=== PATIENT | female | born 1995 | race Caucasian/White ===

== ENCOUNTER → 2021-06-13 09:50 | Outpatient (CLI) | payer OTHER, SELFPAY ==
--- NOTE | ~2021-06-13 | US_ITS ---
EXAMINATION: US OB /maternal detail EXAM DATE: 06/13/2021 10:42 INDICATION: Anatomy scan. 2nd trimester. TECHNIQUE: Pelvic obstetrical transabdominal sonogram was performed by a technologist. There are mu ltiple grayscale and Doppler images available for interpretation. There are no earlier studies of is gestation for comparison. FINDINGS: There is a single fetus identified in variable breech presentation with a heart rate of 150 beats per minute. The placenta is located in the anterior position. There is no sonographic evidenc e of retroplacental hemorrhage identified. There is subjectively expected amount of amniotic fluid. Placental margin to internal cervical os distance is 4.5 cm. BIOMETRIC DATA: Biparietal diameter (BPD): 5.1 cm ----------------> 21 weeks 4 days. Head circumference (HC): 19.1 cm ----------------> 21 weeks 2 days. Abdominal circumference (AC): 16.7 cm ----------> 21 weeks 5 days. Femur length (FL): 3.3 cm --------------------------> 20 weeks 3 days. These measurements are concordant. HC/AC ratio is 1.14 (The 5th -- 95th percentile range is 1.06-1.24. Estimated weight is 405 g +/- 61 g. This is the 71st percentile when the currently reported cl inical gestation age 20 weeks 5 days, clinical estimated date of delivery ([facility]) 10/26 is used. Fe jacob estimated gestational age based on measurements from this exam is 21 weeks 2 days, with an estima evans date of delivery ([facility]) 10/22. ANATOMIC SURVEY: The following anatomy is identified and is sonographically normal in appearance: Cerebral ventricles Cavum septum pellucidum Cerebellum Cisterna magna Nuchal fold CTL-spine Four-chamber heart Diaphragm Stomach Kidneys Bladder Three-vessel cord Cord insertion Nose lips. Extremities IMPRESSION: 1. Single fetus in variable breech presentation with heart rate 150 beats per minute. 2. Estimated weight of 405 grams, 71st percentile using the currently reported clinical gestat ion age of 20 weeks 5 days, [facility]) 10/26. 3. Normal anatomic survey. Reviewed, dictated and finalized at location A. IMPRESSION: 1. Single fetus in variable breech presentation with heart rate 150 beats per minute. 2. Estimated weight of 405 grams, 71st percentile using the currently re ported clinical gestation age of 20 weeks 5 days, [facility]) 10/26. 3. Normal anatomic survey.
== END ==
PROVIDERS: PCP Physician Assistant; Visit Provider Obstetrics & Gynecology
DX: Z36.9 Encounter for antenatal screening, unspecified (principal); Z3A.20 20 weeks gestation of pregnancy
CPT/HCPCS: 76805

== ENCOUNTER 2025-01-14 10:45 | Outpatient (CLI) | payer OTHER, SELFPAY ==
--- NOTE | ~2025-01-14 | US_ITS ---
EXAMINATION: US OB /maternal detail DATE: 01/14/2025 12:11 INDICATION: anatomic survey. TECHNIQUE: Real-time ultrasound of the pelvis was performed. COMPARISON: None. FINDINGS: There is a single living fetus in breech presentation. The placenta is anterior, 3.3 cm from the cer vix. The cervical length is 4.6 cm on transabdominal images, which is normal. heart rate is 153 beats per minute (bpm). The amniotic fluid volume is subjectively normal. The following biometric data were obtained: Biparietal diameter (BPD): 4.4 cm; head circumference (HC): 17.0 cm; abdominal circumference (AC): 14 .6 cm; femur length (FL): 2.9 cm. These measurements are concordant. Estimated weight is 291 g +/- 44 g, which correlates with the 13th percentile when 06/02/25 is us ed as estimated date of delivery. As single measurements, these parameters are each equal to the following estimated gestational ages: BPD: 19 weeks 2 days. HC: 19 weeks 5 days. AC: 19 weeks 6 days. FL: 18 weeks 6 days. estimated gestational age based solely on measurements from this exam is 19 weeks 3 days +/- 1 weeks 3 days. The cerebral ventricles, cerebellum, cisterna magna, nuchal fold, lip, and spine are normal. The hear t is normal. The diaphragm, stomach, kidneys, and bladder are normal. There are two umbilical arterie s to yield a 3-vessel cord. The cord insertion is normal. IMPRESSION: 1. Single living fetus in breech presentation. 2. Estimated weight is 291 g +/- 44 g, which correlates with the 13th percentile when 06/02/25 i s used as estimated date of delivery. 3. Normal anatomic survey. Reviewed, dictated and finalized at location A. TING DIRECTOR IMPRESSION: 1. Single living fetus in breech presentation. 2. Estimated weight is 291 g +/- 44 g, which correlates with the 13th pe rcentile when 06/02/25 is used as estimated date of delivery. 3. Normal anatomic survey.
== END 2025-01-14 10:46 | disposition home or self-care (01) ==
PROVIDERS: PCP Obstetrics & Gynecology; Visit Provider Obstetrics & Gynecology
DX: Z36.9 Encounter for antenatal screening, unspecified (principal); Z3A.19 19 weeks gestation of pregnancy
CPT/HCPCS: 76805